=== PATIENT | male | born 1970 | race Caucasian/White ===

== ENCOUNTER 2021-09-11 11:49 | Outpatient (CLI) | payer OTHER, SELFPAY ==
--- NOTE | 2021-09-12 10:45 | P.METCHAL_ITS ---
Methacholine Procedure Perform Procedure Performed Methacholine Challenge Methacholine Challenge Methacholine Challenge: Methacholine challenge testing was performed with increasing doses of nebulized methacholine according to ATS/ERS 2017 guidelines. Following administration of 464.4 mcg of nebulized methacholine, highest level of provocative dose, the measured FEV1 decreased by approximately 22% from the baseline measurement. Post administration of nebulized short-acting bron chodilator, the FEV1 returned back up to near baseline value. Impression: Positive methacholine challenge testing. Normal airway hyperresponsiveness.
== END 2021-09-11 11:50 | disposition home or self-care (01) ==
PROVIDERS: Visit Provider Nurse Practitioner
DX: J45.909 Unspecified asthma, uncomplicated (principal)
CPT/HCPCS: 94070; J7674

== ENCOUNTER 2021-12-06 08:56 | Outpatient (CLI) | payer OTHER, SELFPAY ==
--- NOTE | ~2021-12-06 | XR_ITS ---
EXAMINATION: XR sniff test without CXR2V INDICATION: Elevated diaphragm TECHNIQUE: Fluoroscopy exposure time was 1.1 minutes. The DAP for this procedure was 20.429 Gycm2. Fl uoroscopic images with shallow breathing and deep inspiration through the nose were obtained in AP an d lateral projections. COMPARISON: None available FINDINGS: There is no elevation of the diaphragms. Diaphragmatic excursion is symmetric with deep ins piration. No abnormal diaphragmatic mobility or eventration are identified. IMPRESSION: 1. Unremarkable sniff test. Reviewed, dictated and finalized at location A. IMPRESSION: 1. Unremarkable sniff test.
== END 2021-12-06 08:57 | disposition home or self-care (01) ==
LOC: ANHIMG 09:00
PROVIDERS: Visit Provider Nurse Practitioner
DX: Q79.1 Other congenital malformations of diaphragm (principal)
CPT/HCPCS: 76000

== ENCOUNTER 2022-12-30 09:13 | Emergency (ER) | payer OTHER, SELFPAY ==
--- NOTE | 2022-12-30 09:17 | ED.GENADULT ---
HPI - General Adult General Chief complaint: Upper Respiratory Infection Stated complaint: cold symptoms Time Seen by Provider: 12/30/22 09:17 Source: patient Mode of arrival: ambulatory Limitations: no limitations History of Present Illness HPI narrative: 52-year-old male patient presents to the [facility] with complaints of cold symptoms for the past 8 days. Patient does have history of asthma and ADHD. Patient states he was diagnosed with asthma last year but admits that he does not adhere to his asthma regiment like he should. Patient states he does take Advair daily and has a rescue inhaler but has only used a rescue inhaler once symptoms since his symptoms started. Patient and states he had a fever of about 100 when his symptoms 1st started 8 days ago but no fever since then. Denies body aches or chills. Patient states his biggest complaint today is ongoing cough with some shortness of breath at times and coughing up brown phlegm. Patient states he is actually feeling better today than he has in the past but wanted to come and get checked out due to the ongoing cough. Patient also complaining of congestion and sinus pressure. Denies any sore throat or ear pain. Patient states he has been taking [id number] DayQuil, NyQuil and Mucinex for his symptoms. Related Data Home Medications Medication Instructions Recorded Confirmed fluticasone propionate 110 2 inh inhalation PRN PRN Shortness 12/30/22 12/30/22 mcg/actuation HFA aerosol inhaler Of Breath Or Wheezing (Flovent HFA) Allergies Allergy/AdvReac Type Severity Reaction Status Date / Time No Known Allergies Allergy Verified 12/30/22 09:18 Review of Systems Review of Systems: CONSTITUTIONAL: Denies fever, chills, or sweats. EYES: Denies visual changes, redness, or discharge. ENT: Denies rhinorrhea, positive congestion, that is denies sore throat, or otalgia. CARDIOVASCULAR: Denies chest pain, palpitations, or edema. RESPIRATORY: positive productive cough with intermittent dyspnea. GASTROINTESTINAL: Denies abdominal pain, nausea, vomiting, or diarrhea. GENITOURINARY: Denies dysuria or hematuria. SKIN: Denies rash or itching. MUSCULOSKELETAL: Denies back pain, joint pain, or myalgia. NEUROLOGIC: Denies headache, numbness, or weakness. PSYCHIATRIC: Denies anxiety or depression. [facility] Past Medical History Medical History (Updated 12/30/22 @ 09:56 by ALYSSA Dodson) ADHD Asthma Surgical History Surgical History (Updated 12/30/22 @ 09:50 by ALYSSA Dodson) History of orthopedic surgery left rotator cuff Comments At the time of my signature I agree with nursing past medical history, surgical, social, and family history. There is no relevant family history pertinent to the presenting complaint. Exam Narrative: GENERAL: Well-appearing, well-nourished, and in no acute distress. HEAD: Normocephalic, atraumatic. EYES: PERRLA and EOMI. ENT: Nares with erythema and edema noted bilateral, no rhinorrhea or epistaxis. Mucous membranes moist. bilateral TMs are clear with no erythema or foreign bodies the canal. Posterior pharynx with no erythema, exudates or lesions present. No tonsillar enlargement NECK: Supple. no positive tenderness to left submandibular lymph node with notable nodule on palpitation CHEST: decreased lung sounds noted to bilateral lower lobes with slow lytes expiratory wheezing noted to left upper lobe on auscultation. No respiratory distress. Has no tripoding noted patient able to talk in clear complete sentences HEART: Regular rate and rhythm. No murmur heard. Normal peripheral pulses. ABDOMEN: Soft, nontender, nondistended, normal active bowel sounds. EXTREMITIES: Normal range of motion. No edema. SKIN: Warm, dry, no rash. NEURO: No focal deficits. Alert and oriented x3. Course Course Level of Care: Express Care Visit Reevaluation(s) Reevaluation #1: I re-evaluated patient after receiving a n
[2022-12-30 09:26] VITALS: BP 139/85; PULSE 67; RESP 18; TEMP 36.3; O2SAT 97
[2022-12-30 09:57] VITALS: PULSE 98; RESP 18; O2SAT 97
[2022-12-30] MEDS: IPRATROPIUM BR 0.02% INH SOLN 0.5 MG/2.5 ML VIAL INHALATION (09:59)
[2022-12-30] MEDS: ALBUTEROL SULFATE NEB 2.5 MG/3 ML INH INHALATION (09:59)
== END 2022-12-30 10:41 | disposition home or self-care (01) ==
PROVIDERS: Emergency Provider Nurse Practitioner Family
DX: J40 Bronchitis, not specified as acute or chronic (principal)
CPT/HCPCS: 94640; 99213; G0463

== ENCOUNTER → 2023-03-19 10:45 | Outpatient (CLI) | payer OTHER, SELFPAY ==
--- NOTE | ~2023-03-19 | MR_ITS ---
MRI of the right knee Clinical history: Chondromalacia Technique: Coronal proton density and proton density-weighted images, sagittal proton-density and T2 fat-sat images, and axial proton-density fat-saturated images were acquired. Findings: Anterior and posterior cruciate ligaments are intact. Medial collateral ligament and the la teral collateral ligament complex are intact. Popliteus tendon is intact. Medial and lateral menisci are intact, without evidence of tear. There is patchy moderate to high-grade chondromalacia the patellar apex, extending along the medial f acet. Femoral trochlear cartilage is intact. Medial and lateral compartment articular cartilage is in tact. Bone marrow signals are unremarkable. Extensor mechanism is intact. No joint effusion or Xavier's cyst. 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 No other significant findings. Reviewed, dictated and finalized at location . 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 No other significant findings.
== END ==
DX: M94.261 Chondromalacia, right knee (principal); M70.51 Other bursitis of knee, right knee
CPT/HCPCS: 73721